=== PATIENT | male | born 1975 | race Caucasian/White ===

== ENCOUNTER 2021-02-15 11:00 | Emergency (ER) | payer MEDICAID ==
[2021-02-15 11:03] VITALS: RESP 18; TEMP 97.9
[2021-02-15] MEDS ORDERED: ONDANSETRON 4 MG/2 ML VIAL IVP STA (11:13)
[2021-02-15] MEDS ORDERED: DIAZEPAM 5 MG/ML 2 ML INJ IVP STA (11:13)
[2021-02-15] MEDS ORDERED: KETOROLAC 15 MG/ML 1 ML VIAL IVP STA (11:13)
[2021-02-15] MEDS ORDERED: HYDROmorphone 0.5 MG/0.5 ML SYRINGE IVP STA ×2 (11:13→12:37)
--- NOTE | 2021-02-15 12:35 | CT ---
EXAMINATION TYPE: CT lumbar spine wo con DATE OF EXAM: 02/15/2021 COMPARISON: HISTORY: no injury low back pain with radiation bilaterally. left leg weakness CT DLP: 1550.4 mGycm CONTRAST: None TECHNIQUE: CT of the lumbar spine is performed on a spiral scan at 3 mm thick sections. Reconstructed images are performed in the coronal and sagittal planes. FINDINGS: T12-L1: No focal disc herniation or significant disc bulge is evident. No spinal canal stenosis or neural foraminal stenosis is present. L1-L2: No focal disc herniation or significant disc bulge is evident. No spinal canal stenosis or n eural foraminal stenosis is present L2-L3: Broad-based disc bulge is present with mild anterior thecal sac compression. No AP spinal mirza l stenosis present. Some facet hypertrophy is present. Neural foramen appear patent L3-L4: Broad-based disc bulge is mild to moderate anterior thecal sac flattening. Facet hypertrophy a nd ligamentum flavum laxity is posterior lateral thecal sac compression. This is contributing to mild canal narrowing. Moderate left and mild right foraminal narrowing is present. L4-L5: Broad-based disc bulge is mild anterior thecal sac compression. Facet hypertrophy is present. No spinal canal stenosis is present. There is moderate left and mild right foraminal narrowing. L5-S1: There is loss of disc height present. Endplate spurring is present. No spinal canal stenosis o r nerve root impingement is present. There is moderate left and moderate to severe right foraminal st enosis. Correlate with radicular symptoms Vertebral alignment appears normal. IMPRESSION: Facet hypertrophy and loss of disc height L5-S1 contribute to severe right and moderate left foramina l narrowing. Additional levels of foraminal narrowing are noted above. 2. Broad-based disc bulging present L2-3 through L4-5 with mild to moderate anterior thecal sac compr ession 3. Disc bulge and facet hypertrophy is contributing to some mild spinal canal narrowing at the L3-4 l evel. 4. No acute osseous changes identified.
--- NOTE | 2021-02-15 13:12 | ED ---
Back Pain HPI - General Chief Complaint: Back Pain/Injury Stated Complaint: Back Injury Time Seen by Provider: 02/15/21 11:07 Source: patient, RN notes reviewed Limitations: no limitations - History of Present Illness Initial Comments: 45-year-old male presents emergency Department with chief complaint of low back pain. Patient states he woke up felt that he slept wrong. Patient states pain is too much" home and the only took Tylenol. Patient denies any bowel, bladder incontinence or retention no saddle anesthesias. Patient states he has no history of back pain other than some mild aches and pains denies abdominal pain no dysuria denies any lower shunted paresthesias or saddle anesthesias. Patient states she does have some pain areas on his left leg. - Related Data Previous Rx's Medication Instructions Recorded Cyclobenzaprine [Flexeril] 10 mg PO TID PRN #15 tab 02/15/21 HYDROcodone/APAP 7.5-325MG [[place] 1 tab PO Q6HR PRN 3 Days #12 tab 02/15/21 7.5-325] Ibuprofen [Motrin] 600 mg PO Q8HR PRN #20 tab 02/15/21 predniSONE 50 mg PO DAILY #5 tab 02/15/21 Allergies Allergy/AdvReac Type Severity Reaction Status Date / Time No Known Allergies Allergy Verified 02/15/21 11:03 Review of Systems ROS Statement: Those systems with pertinent positive or pertinent negative responses have been documented in the HPI. ROS Other: All systems not noted in ROS Statement are negative. Past Medical History Additional Past Medical History / Comment(s): kidney stones History of Any Multi-Drug Resistant Organisms: None Reported Past Surgical History: Cholecystectomy Additional Past Surgical History / Comment(s): litotripsy Past Psychological History: No Psychological Hx Reported Smoking Status: Current every day smoker Past Alcohol Use History: None Reported Past Drug Use History: None Reported General Exam Limitations: no limitations General appearance: alert, in no apparent distress Head exam: Present: atraumatic, normocephalic, normal inspection Neck exam: Present: normal inspection, full ROM. Absent: tenderness, meningismus, lymphadenopathy Respiratory exam: Present: normal lung sounds bilaterally. Absent: respiratory distress, wheezes, rales, rhonchi, stridor Cardiovascular Exam: Present: regular rate, normal rhythm, normal heart sounds. Absent: systolic murmur, diastolic murmur, rubs, gallop, clicks GI/Abdominal exam: Present: soft, normal bowel sounds. Absent: distended, tenderness, guarding, rebound, rigid Extremities exam: Present: other (Pedal pulses equal bilaterally, equal color equal warmth pain with range of motion left leg) Back exam: Present: tenderness, muscle spasm, paraspinal tenderness. Absent: full ROM (Patient reports to much pain), vertebral tenderness Neurological exam: Present: reflexes normal. Absent: motor sensory deficit Course Vital Signs 02/15/21 02/15/21 02/15/21 11:01 11:28 12:41 Temperature 97.9 F Pulse Rate 75 75 70 Respiratory 18 18 18 Rate Blood Pressure 147/91 124/78 125/76 O2 Sat by Pulse 98 98 97 Oximetry Medical Decision Making - Medical Decision Making Patient CT shows diffuse disc bulging encroachment mild thecal sac impression is no red flag symptoms patient and family member in the room were given strict return parameters and outline these symptoms patient advised follow-up with orthopedics patient started on steroids. Patient given first dose in the emergency department. Disposition Clinical Impression: Bulging lumbar disc, Lumbar radiculopathy, acute Disposition: HOME SELF-CARE Condition: Stable Instructions (If sedation given, give patient instructions): Acute Low Back Pain (ED) Additional Instructions: Please limit activity as directed. Please follow-up with orthopedics as directed.Please return to the Emergency Department if symptoms worsen or any other concerns. Prescriptions: Cyclobenzaprine [Flexeril] 10 mg PO TID PRN #15 tab PRN Reason: Muscle Spasm Ibuprofen [Motrin] 600 mg PO Q8HR PRN #20 tab PRN Reason: Pain HYDROcodone/APAP 7.5-325MG [[place] 7.5-325] 1 tab PO Q6HR PRN 3 Days #12 tab PRN Reason: Pain predniSONE 50 mg PO DAILY #5 tab Is patient prescribed a controlled substance at d/c from ED?: Yes If prescribed controlled substance>3 days was MAPS reviewed?: Prescribed <3 Days If opioid is for acute pain is fill amount 7 days or less?: Yes If Rx opioid, was Start Talking consent form obtained?: Yes Referrals: Chelsi Seals DO [Primary Care Provider] - 1-2 days Debbie Oakley DO [Doctor of Osteopathic Medicine] - 1-2 days Time of Disposition: 13:12
[2021-02-15] MEDS ORDERED: methylPREDNISolone SOD SUCCI 125 MG/2 ML VIAL IV STA (13:17)
[2021-02-15 13:28] VITALS: BP 119/82; PULSE 75
== END 2021-02-15 13:27 | disposition home or self-care (01) ==
LOC: EC 11:00
DX: M51.16 Intervertebral disc disorders with radiculopathy, lumbar region (principal); F17.200 Nicotine dependence, unspecified, uncomplicated
CPT/HCPCS: 72131; 99284; 96374 ×2; 96375; 96376; J2930; J3360; J2405; J1885; J1170

== ENCOUNTER → 2021-04-16 | Outpatient (CLI) | payer MEDICAID ==
[2021-04-16 23:49] LABS: ALT 53 U/L (10-49); AST 28 U/L (14-35); African American GFR (CKD) 106.4 (60.0-200.0); Albumin/Globulin Ratio 2.35 (1.60-3.17); Alkaline Phosphatase 49 U/L (41-126); Calcium 9.4 mg/dL (8.7-10.3); Carbon Dioxide 24.1 mmol/L (21.6-31.8); Chloride 110 mmol/L (96-109); Chol/HDL Ratio 2.56; Cholesterol 156 mg/dL (0-200); Glucose 91 mg/dL (70-110); Non-African American GFR(CKD) 91.8 (60.0-200.0); Potassium 4.7 mmol/L (3.5-5.5); Sodium 143 mmol/L (135-145); Total Bilirubin 0.5 mg/dL (0.3-1.2); Total Protein 6.7 g/dL (6.2-8.2); Triglycerides <50.0 mg/dL (0.0-149.0)
== END | disposition home or self-care (01) ==
LOC: LABWHC1 09:03
PROVIDERS: ATTEND Nurse Practitioner Family
DX: Z13.220 Encounter for screening for lipoid disorders (principal); Z13.1 Encounter for screening for diabetes mellitus
CPT/HCPCS: 36415; 80053; 80061

== ENCOUNTER → 2021-04-16 | Outpatient (CLI) | payer MEDICAID ==
--- NOTE | 2021-04-16 09:58 | XR ---
EXAMINATION TYPE: XR chest 2V DATE OF EXAM: 04/16/2021 COMPARISON: None INDICATION: Presurgical evaluation TECHNIQUE: Frontal and lateral views of the chest are obtained. FINDINGS: The heart size is normal. The pulmonary vasculature is normal. The lungs are clear. IMPRESSION: 1. No acute pulmonary process.
[2021-04-16 10:36] LABS: Appearance,Urine Clear (Clear); Bilirubin,Urine Negative (Negative); Blood,Urine Negative (Negative); Color,Urine Yellow; Glucose,Urine (UA) Negative (Negative); Ketones,Urine Negative (Negative); Leukocyte Esterase,Urine Negative (Negative); Nitrite,Urine Negative (Negative); PH, Urine 5.5 (5.0-8.0); Protein,Urine Negative (Negative); Specific Gravity,Urine 1.026 (1.001-1.035); Urobilinogen,Urine <2.0 mg/dL (<2.0)
== END | disposition home or self-care (01) ==
LOC: LABPAT 08:55
PROVIDERS: ATTEND Orthopaedic Surgery Orthopaedic Surgery of the Spine
DX: Z01.812 Encounter for preprocedural laboratory examination (principal); M51.26 Other intervertebral disc displacement, lumbar region
CPT/HCPCS: 71046; 81003; 87070; 93005

== ENCOUNTER 2021-04-30 06:16 | Day surgery (SDC) | payer MEDICAID ==
[~2021-04-30 06:16] MED LIST: LIDOCAINE 1% (10MG/ML) FOR IV START INTRADERMA PRN; ONDANSETRON 4 MG/2 ML VIAL IVP ONE; SCOPOLAMINE 1.5MG/72HR PATCH TRANSDERM ONE; ceFAZolin 1,000 MG in SODIUM CHLORIDE 0.9% IRRIGATIO 1,000 ML IRRIGATION PRN
[2021-04-30] MEDS: LACTATED RINGERS 1,000 ML IV SCH (06:56)
[2021-04-30] MEDS ORDERED: ROCURONIUM 10 MG/ML (5 ML VIAL) IV ONE (07:26)
[2021-04-30] MEDS ORDERED: SUCCINYLCHOLINE CHLORIDE 100 MG/5 ML SYR IV ONE (07:26)
[2021-04-30] MEDS ORDERED: PROPOFOL 10 MG/ML 20 ML VIAL IV ONE (07:26)
[2021-04-30] MEDS ORDERED: NEOSTIGMINE 1 MG/ML 10 ML VIAL ONE (07:26)
[2021-04-30] MEDS ORDERED: PHENYLEPHRINE-0.9% NACL SYG 1,000 MCG/10 ML SYRINGE ONE (07:26)
[2021-04-30] MEDS ORDERED: MIDAZOLAM 2 MG/2 ML VIAL ONE (07:26)
[2021-04-30] MEDS ORDERED: GLYCOPYRROLATE 0.2 MG/ML 2 ML VIAL ONE (07:26)
[2021-04-30] MEDS ORDERED: fentaNYL (PF) 50 MCG/ML 2 ML AMP ONE (07:26)
[2021-04-30] MEDS ORDERED: HYDROmorphone (PF) 1 MG/ML ONE (07:26)
[2021-04-30] MEDS ORDERED: THROMBIN (BOVINE) 5,000 UNIT VIAL TOPICAL ONE (07:29)
[2021-04-30] MEDS ORDERED: GELATIN SPONGE,ABSORB (LARGE) 1 EACH SPONGE TOPICAL ONE (07:29)
[2021-04-30] MEDS ORDERED: LIDOCAINE 0.5%-EPI 1:200,000 50 ML VIAL SQ ONE (07:29)
--- NOTE | 2021-04-30 08:34 | XR ---
Fluoroscopy History: NEEDLE PLACEMENT LUMBAR LAMINECTOMY DISKECTOMY L3/L4 . 1 sec fl time. 1 pic on syn
--- NOTE | 2021-04-30 08:34 | FL ---
Fluoroscopy History: LUMBAR LAMINECTOMY DISKECTOMY L3/L4 LUMBAR LAMINECTOMY DISKECTOMY L3/L4 . 1 sec fl time. 1 pic on syn under spine
[2021-04-30] MEDS ORDERED: methylPREDNISolone ACETATE 40 MG/ML 1 ML VIAL MISCELLANE ONE (08:56)
[2021-04-30] MEDS ORDERED: HYDROmorphone 0.5 MG/0.5 ML SYRINGE IVP PRN (09:09)
[2021-04-30] MEDS ORDERED: HYDROmorphone 1 MG/ML 1 ML SYRINGE IVP PRN (09:09)
[2021-04-30] MEDS ORDERED: BENZOCAINE/MENTHOL LOZENG 1 EACH LOZENGE MUCOUS MEM PRN (09:09)
[2021-04-30] MEDS ORDERED: LACTATED RINGERS 1,000 ML IV ONE (09:10)
[2021-04-30] MEDS ORDERED: IBUPROFEN 600 MG TAB PO PRN (09:10)
[2021-04-30] MEDS ORDERED: ONDANSETRON 4 MG/2 ML VIAL IVP PRN (09:10)
[2021-04-30] MEDS ORDERED: ACETAMINOPHEN TAB 325 MG TAB PO PRN (09:10)
[2021-04-30] MEDS ORDERED: LORATADINE-PSEUDOEPH 5-120 MG 1 EACH TAB.ER.12H PO PRN (09:12)
--- NOTE | 2021-04-30 09:18 | P.OP ---
Date of Procedure: 04/30/21 Preoperative Diagnosis: Herniated nucleus pulposis L3 4, far lateral Left lower extremity radiculopathy, left lower extremity weakness Postoperative Diagnosis: Same Anesthesia: GETA Pathology: none sent Condition: stable Disposition: PACU Description of Procedure: BRIEF OPERATIVE NOTE Preoperative Diagnosis: L3 4 far lateral disc herniation with extruded fragment, left lower extremity radiculopathy, left lower extremity weakness Postoperative Diagnosis: Same Procedure: Laminectomy and decompression L3 4 Discectomy for decompression L3 4 with far lateral decompression as well and discectomy for decompression Surgeon: Dr. Oakley Practice Director: Yimi Sanchez is present throughout the entire the case persistence during positioning, dissection, exposure, visualization, and all crucial elements of the case as well as closure. Anesthesia: General anesthesia per Dr. Copeland Estimated blood loss: Approximately 50 mL Complications: None apparent Components implanted: None Disposition: To recovery room in good stable condition. OPERATIVE INDICATIONS The patient has been having issues in their lower back and lower extremities. He's been having severe pain in his left lower extremity with weakness of his left leg over his left quadriceps. He was found have a large disc herniation at L3 4 at the far lateral space was correlated well with his low back and lower extremity symptoms. He is not having any benefit despite aggressive conservative care. He was having significant debility due to the disc herniation and issues in his back and the pain and weakness of his left leg. The patient has been through conservative treatment. We discussed various treatment options including surgery, and the patient wishes to proceed with surgery We discussed the risk, patient's alternatives and benefits of surgery including but not limited to, risk of bleeding risk of infection, risk of need for further surgery, risk of decreased, loss of motion, loss of function, nerve damage, paralysis, heart attack, blindness and . OPERATIVE SUMMARY After discussing all the risks, patient alternatives and benefits at length, the patient elected to proceed with surgical intervention, signed informed consent, and presented for their procedure. The patient was seen and examined in the preoperative holding area and the surgical site was marked. The patient was given antibiotics and brought to the operating room. The patient was sedated and intubated by anesthesia in standard fashion. The patient was positioned on to the operating room table in a prone position on the appropriate frame which was well-padded and well molded. We were careful to pad any bony prominences and pressure points. We were careful to maintain the patient's cervical spine and good neutral alignment and position throughout. The patient was prepped and draped in a normal standard fashion. An appropriate timeout and keystone protocol performed. We were able to proceed with the surgery. Fluoroscopy was utilized to establish the appropriate level. The local wound area was infiltrated with local anesthetic. An incision was made at the midline longitudinally over the appropriate levels at L3 4. Dissection was taken down subcutaneously to the level of the fascia which was split midline. Dissection was taken over the lamina. Intraoperative fluoroscopy was taken which showed a marker at the appropriate level at L3 4 interspace. With the appropriate level positively confirmed, we were able to proceed with laminectomy. The wound was copiously irrigated and suctioned dry as had been done periodically throughout the case. I performed a laminectomy with a combination of curettes and a high-speed bur and [place] rongeurs. A small medial facetectomy was performed again further access. A partial foraminotomy was also performed. Portions of the ligamentum flavum were taken down to expose the dura and traversing nerve root. I was able to mobilize the traversing nerve root and gain access to the disc space. Note was made of obvious compression from the disc. The decompression extended subarticular and at the far lateral space. Protecting the soft tissue structures, a small annulotomy was established. I was able to perform discectomy and remove any extruded disc fragments and any loose fragments from within the disc itself. There is some disc desiccation noted. I tried to preserve the disc annulus that appeared stable. There is still compression of the far lateral space that was difficult to access from the medial aspect. I dissected around the facet laterally and was able to dissect down to the disc space lateral to the facet at L3 4. I was able to expose further disc and do further discectomy at the far lateral space which provided further decompression. The nerve root was freely mobile and the foramen was wide open. There is no IVs compression or further fragments. There were no further extruded fragments noted. There is no evidence of dural tear or leak. Good hemostasis maintained. The wound was copiously irrigated and suctioned dry. Good decompression and discectomy was noted. We were able to proceed with closure. The fascia was closed for a watertight closure. The subcuticular tissue was closed with absorbable suture. The wound was cleaned and dried and dressed with the appropriate dressing. The drapes were broken down. The patient was gently rolled back onto their hospital bed being careful to maintain their cervical spine and good neutral alignment and position. They were woken up by anesthesia, extubated, and brought to the recovery room in good stable condition. The patient will be admitted to the hospital for observation and for appropriate postoperative care, medical management and monitoring. We will continue to follow them closely about the postoperative course.
[2021-04-30] MEDS: HYDROmorphone 0.5 MG/0.5 ML SYRINGE IVP PRN ×4 (09:34→10:14)
[2021-04-30] MEDS: MIDAZOLAM 2 MG/2 ML VIAL IVP ONE ×2 (09:59→10:13)
[2021-04-30] MEDS: MEPERIDINE 50 MG/ML SYRINGE IVP ONE ×2 (10:34→10:45)
[2021-04-30] MEDS: fentaNYL (PF) 50 MCG/ML 2 ML AMP IVP ONE ×2 (10:55→11:06)
[2021-04-30] MEDS: HYDROcodone/APAP 7.5-325MG 1 EACH TAB PO PRN ×2 (11:17→20:27)
[2021-04-30] MEDS ORDERED: SODIUM CHLORIDE 0.9% 1,000 ML IV ONE (12:28)
[2021-04-30] MEDS: CYCLOBENZAPRINE 10 MG TAB PO PRN (13:32)
[2021-04-30] MEDS: SODIUM CHLORIDE 0.9% 1,000 ML IV SCH (16:11)
[2021-05-01] MEDS: SODIUM CHLORIDE 0.9% 1,000 ML IV SCH (01:00)
[2021-05-01] MEDS: CYCLOBENZAPRINE 10 MG TAB PO PRN (01:10)
[2021-05-01] MEDS: LACTATED RINGERS 1,000 ML IV SCH (06:27)
[2021-05-01 07:46] VITALS: BP 126/80; PULSE 71; RESP 18; TEMP 98.2
[2021-05-01] MEDS: HYDROcodone/APAP 7.5-325MG 1 EACH TAB PO PRN (08:11)
--- NOTE | 2021-05-01 08:43 | P.DS ---
Providers Date of admission: 04/30/21 Attending physician: Debbie Oakley Primary care physician: Chelsi Seals [facility] Course: The patient presented on the day of admission as per their operative note. He underwent laminectomy decompression L3 4 far for his bilateral disc herniation and feels that his leg is making some progress today. He had significant soreness last night but he is more mobile today. He denies any fevers chills. Denies any new weakness. Denies changes in bowel bladder function. Physical Exam The incision site is clean dry and intact. There is no erythema no drainage. There is no purulence no evidence of infection. Abdomen soft and nontender. Chest has good excursion with deep inspiration and expiration. The patient has active and passive range of motion intact at the upper and lower extremities. There is no acute change in neurologic status. He may have some increased strength in his left quadriceps. The incision site is clear. There is no active drainage or bleeding. Hospital Course Postoperative day #1 status post laminectomy decompression with discectomy L3 4 far lateral disc herniation left lower extremity radiculopathy and weakness. Patient is doing well and has had some improvement with surgery thus far. He had some pain around his surgical site yesterday but is feeling much better this morning. The patient has been making good progress postoperatively. They have completed the prophylactic antibiotics without any signs or symptoms of infection. The patient has been able to advance their diet, and is tolerating diet adequately. The pain was initially controlled with IV medications and is now controlled appropriately with oral medications. The patient has been able to increase their mobilization. The patient has progressed appropriately. I think they are in good stable condition for discharge today. They will be sent home with appropriate prescriptions. I answered their questions to the best of my ability in a language that they can understand and they are agreeable with the plan. They will follow up as directed. Patient Condition at Discharge: Good Plan - Discharge Summary Discharge Rx Participant: Yes New Discharge Prescriptions: New Cyclobenzaprine [Flexeril] 10 mg PO TID PRN #30 tab PRN Reason: Spasms No Action HYDROcodone/APAP 7.5-325MG [[place] 7.5-325] 1 tab PO Q6HR PRN 3 Days #12 tab PRN Reason: Pain Loratadine-Pseudoeph 10-240 mg [Claritin-D 24 Hour] 1 tab PO DAILY PRN PRN Reason: allergies Discharge Medication List HYDROcodone/APAP 7.5-325MG [[place] 7.5-325] 1 tab PO Q6HR PRN 3 Days #12 tab 02/15/21 [Rx] Loratadine-Pseudoeph 10-240 mg [Claritin-D 24 Hour] 1 tab PO DAILY PRN 04/25/21 [History] Cyclobenzaprine [Flexeril] 10 mg PO TID PRN #30 tab 04/30/21 [Rx] Follow up Appointment(s)/Referral(s): Debbie Oakley DO [Doctor of Osteopathic Medicine] - 2 Weeks Activity/Diet/Wound Care/Special Instructions: Keep site clean. May shower with waterproof Tegaderm intact. Do not soak in a tub. After 72 hours postoperatively, patient May remove dressing and then may shower with area uncovered. Leave glue intact and allow it to fray off on its own. May ambulate as tolerated. Avoid heavy or rigorous activity. No repetitive bending twisting or lifting. No overhead work. Discharge Disposition: HOME SELF-CARE
[2021-05-01 10:51] VITALS: BMI 34.2
== END 2021-05-01 09:52 | disposition home or self-care (01) ==
LOC: OR 06:16 → 4SSUR 12:27 → OR 05-01 09:52
PROVIDERS: ATTEND Orthopaedic Surgery Orthopaedic Surgery of the Spine
DX: M51.16 Intervertebral disc disorders with radiculopathy, lumbar region (principal)
CPT/HCPCS: 63005; 87635; 72020; J2250; J1030; J2175; J0690 ×2; J2405; J3010; J1170